=== PATIENT | female | born 1960 | race Caucasian/White ===

== ENCOUNTER 2025-03-28 13:24 | Emergency (ER) | payer BC, MEDICARE ==
[2025-03-28] MEDS: HYDROmorphone 0.5 MG/0.5 ML Syringe IM ONE (15:17)
== END 2025-03-28 15:50 | disposition home or self-care (01) ==
LOC: JP.ED 13:24
DX: S82.831A Other fracture of upper and lower end of right fibula, initial encounter for closed fracture (principal); Z88.8 Allergy status to other drugs, medicaments and biological substances; Z79.899 Other long term (current) drug therapy; X50.1XXA Overexertion from prolonged static or awkward postures, initial encounter
CPT/HCPCS: 73610-26-RT; 73610-RT; 96372; 99283